=== PATIENT | male | born 1990 | race Caucasian/White ===

== ENCOUNTER 2020-12-25 22:55 | Emergency (ER) | payer OTHER ==
[~2020-12-25] VITALS: Ht 162.6 cm; Wt 136.1 kg
--- NOTE | ~2020-12-25 | EMS ---
[place] [address] EMS Patient Care Report Name: ZEINA MAJANO Room: [facility]#: [id number] Admission: 12/25/20 Attend Phys: Discharge: Date of : [birth year] Report #: [id number] THIS REPORT FOR: //name// Report Transmitted: 12/25/2020 23:42 EMS Care Summary [facility] Incident [id number] @ 12/25/2020 21:59 Incident Location [address] [place] [address] [place] [address] Patient ZEINA MAJANO Male, 30 Years 1990 Patient Address [address] [place] [address] Patient History Type 1 Diabetes, Patient Allergies No known allergies, Patient Medications Levemir, Humalog, Chief Complaint HYPERGLYCEMIA Disposition Transported No Lights/[place] Dispatch Reason Diabetic Problem Transported To [facility] Narrative Med 1 and Engine 1 were dispatched for a [age] year-old male c/o low blood sugar. Upon arrival, the patient was standing outside accompanied by a friend who reported that they gave him two glasses of orange juice then he took [place] [id number] EMS Patient Care Report Name: ZEINA MAJANO Room: [facility]#: [id number] Admission: 12/25/20 Attend Phys: Discharge: Date of : [birth year] Report #: [id number] three units of insulin. Patient was assisted to the ambulance and secured to the stretcher without incident. IV access was obtained with a 20 GA IV in the patients left AC as I was securing the IV the patient pulled his arm and began getting violent kicking his legs and thrashing his arms around. Patient's pupils were dilated and it took four personnel to attend to him. Patient was given 2mg of versed IM in his right deltoid. He continued to fight us and patient was given another 2 mg of Versed IM in the left deltoid. Patient's blood glucose was 300 mg/dL. Patient reported that he took a few gummies his friend gave him. By this time [employer] had arrived on scene for assistance and one was questioning the friends inside the apartment. Patient was 2 mg of Narcan via nasal atomizer. Patient began to calm down. Patient's friend reported he got the gummies from another friend and they were wrapped up in cigarette package. Med 1 went en route to [facility]. In the ambulance, patients vitals were obtained. Patient began coming around and was AOx4. He did not recall becoming violent or agitated. Patient apologized and remembered taking the gummie but nothing after that. Patient's vitals were monitored through out transport. Hospital report was given via radio with no questions or orders received or requested. Med 1 arrived at the hospital. Patient was moved into the ER via stretcher to room 3 without incident. Patient care was transferred to ER staff. Med 1 returned back into service. [id number] KShook Initial Vitals @22:06R: 16,BP: 160/105,Glucose: 308, @22:32P: 138,R: 20,BP: 140/68,GCS: 14,SpO2: 100,Revised Trauma: 12, Assessments @22:39MENTAL:Combative,Confused,Person Oriented,Time Oriented,Place Oriented,Event Oriented,SKIN:HEENT:Eyes: Left: Dilated,Eyes: Right: Dilated,Eyes: Right Pupil: 5-mm,Eyes: Left Pupil: 5-mm,Head/Face: No Abnormalities,Neck/Airway: No Abnormalities,LUNG SOUNDS:General: No Abnormalities,ABDOMEN:General: No Abnormalities,PELVIS//GI:EXTREMITIES:Left Arm: No Abnormalities,Right Arm: No Abnormalities,Left Leg: No Abnormalities,Right Leg: No Abnormalities,PULSE:NEURO:No Abnormalities, Impression Altered Mental Status Procedures @22:12Midazolam - 2 Milligrams (mg) - Intramuscular (IM)Response: [place] [address] EMS Patient Care Report Name: ZEINA MAJANO Room: [facility]#: [id number] Admission: 12/25/20 Attend Phys: Discharge: Date of : [birth year] Report #: [id number] Unchanged@22:17Midazolam - 2 Milligrams (mg) - Intramuscular (IM)Response: Improved@22:20Naloxone - 4 Milligrams (mg) - IntranasalResponse: Unchanged Timeline :59,Call Received :59,Dispatched 21:59,En Route 22:02,On Scene 22:03,At Patient 22:06,BP: 160/105 M,PULSE: ,RR: 16 R,SPO2: Ox,ETCO2: ,B,PAIN: ,GCS: , 22:12,Midazolam - 2 Milligrams (mg) - Intramuscular (IM),Response: Unchanged 22:17,Midazolam - 2 Milligrams (mg) - Intramuscular (IM),Response: Improved 22:20,Naloxone - 4 Milligrams (mg) - Intranasal,Response: Unchanged 22:30,Depart Scene 22:32,BP: 140/68 M,PULSE: 138,RR: 20 R,SPO2: 100 Ox,ETCO2: ,BG: ,PAIN: ,GCS: 14, 22:52,At Destination 23:23,Call Closed 23:23,In District Disclaimer v1.1 Copyright 2020 [employer] This EMS Care Summary contains data elements from the applicable legal record (which may be displayed differently). It is designed to provide pertinent information for the following purposes: continuity of care, clinical quality, and state data reporting. The complete legal record is available to ED staff and administrators of the receiving hospital in [employer] Patient Tracker. All data is provided "as is."
[2020-12-25 23:21] LABS: ABSOLUTE EOSINOPHILS 0.2 thou/uL (0.0-0.7); ABSOLUTE LYMPHOCYTES 1.2 thou/uL (0.8-5.3); ABSOLUTE MONOCYTES 0.8 thou/uL (0.0-1.2); ABSOLUTE NEUTROPHILS 5.4 thou/uL (1.6-8.1); BASOPHILS 0.5 %; EOSINOPHILS 2.3 %; HEMATOCRIT 43.2 % (42.0-52.0); HEMOGLOBIN 14.7 gm/dL (14.0-18.0); LYMPHOCYTES 15.6 %; MCH 29.1 pg (26.0-34.0); MCHC 34.1 g/dL (28.0-37.0); MCV 85.3 fL (80.0-100.0); MONOCYTES 10.1 %; MPV 7.1 fl. (7.2-11.1); NUCLEATED RBCS 0 /100WBC; PLATELET COUNT* 282 thou/uL (150-400); POLYS 71.5 %; RBC 5.07 mil/uL (4.50-6.00); RDW-CV 13.3 % (10.5-14.5); WBC 7.5 thou/uL (4.0-11.0)
[2020-12-25] MEDS ORDERED: LEVEMIR100 UNIT/1 SUBQ (23:21)
[2020-12-25] MEDS ORDERED: HUMALOG100 UNIT/1 SUBQ (23:22)
[2020-12-25 23:31] LABS: CALCIUM 8.7 mg/dL (8.5-10.1); CREATININE 1.4 mg/dL (0.6-1.3); POTASSIUM 3.8 mmol/L (3.5-5.1)
[2020-12-25 23:36] LABS: ALBUMIN 3.6 g/dL (3.4-5.0); TOTAL BILIRUBIN 0.4 mg/dL (<0.1-1.0); TOTAL PROTEIN 7.1 g/dL (6.4-8.2)
[2020-12-25 23:50] LABS: AMP/METHAMP Negative (Negative); BARBITURATES Negative (Negative); BENZODIAZEPINES POSITIVE (Negative); COCAINE Negative (Negative); METHADONE Negative (Negative); OPIATES Negative (Negative); PCP Negative (Negative); THC POSITIVE (Negative)
[2020-12-26 01:26] VITALS: BP 125/55
--- NOTE | 2020-12-26 11:13 | EKG ---
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
== END 2020-12-26 01:27 | disposition home or self-care (01) ==
LOC: M.ERS 22:55
PROVIDERS: Personal Emergency Response Attendant
DX: T43.591A Poisoning by other antipsychotics and neuroleptics, accidental (unintentional), initial encounter (principal); R00.0 Tachycardia, unspecified; R40.4 Transient alteration of awareness; E10.649 Type 1 diabetes mellitus with hypoglycemia without coma; Y92.89 Other specified places as the place of occurrence of the external cause